=== PATIENT | male | born 1955 | race Caucasian/White ===

== ENCOUNTER → 2017-10-05 | Outpatient (CLI) | payer BC | END | disposition home or self-care (01) | LOC: SPEC 16:40 | DX: L91.8 Other hypertrophic disorders of the skin (principal) | CPT/HCPCS: 88304 ==

== ENCOUNTER → 2018-08-08 | Outpatient (CLI) | payer BC ==
--- NOTE | 2018-08-08 17:00 | RAD ---
PA and lateral chest. HISTORY: Bradycardia PA and lateral views were taken of the chest. Lungs are free of infiltrates. Heart is normal in size. The aorta is mildly tortuous. There is mild bowel distention in the abdomen. There is no effusion. IMPRESSION: 1. No acute infiltrates. Electronically signed by: Robby White MD (08/08/2018 4:56 PM) [facility]
== END | disposition home or self-care (01) ==
LOC: RAD 16:13
PROVIDERS: ATTEND Nurse Practitioner
DX: R00.1 Bradycardia, unspecified (principal)
CPT/HCPCS: 71046

== ENCOUNTER → 2018-09-04 | Outpatient (CLI) | payer BC ==
[~2018-09-04] VITALS: Ht 185.4 cm; Wt 79.4 kg
[~2018-09-04] MED LIST: ALBU2.5V8 INH; BUPR100T7 PO; FLUT1DIS IH; REGADENOSON 0.4 MG/5 ML DISP.SYRIN. IV ONE
--- NOTE | 2018-09-04 11:18 | CARD ---
MR#: [id number] Date of Study: 09/04/2018 Ordering Physician: MAXINE URIBE, Referring Physician: MAXINE URIBE Tech: Melody Joyce GOLDIE APPROVED REPORT EXAM: Two-dimensional and M-mode echocardiogram with Doppler and color Doppler. Other Information Quality : Good INDICATION Chest Pain Bigeminy 2D DIMENSIONS RVDd3.1 (2.9-3.5cm)Left Atrium(2D)3.6 (1.6-4.0cm) IVSd1.1 (0.7-1.1cm)Aortic Root(2D)3.6 (2.0-3.7cm) LVDd5.1 (3.9-5.9cm)LVOT Diameter2.5 (1.8-2.4cm) PWd0.8 (0.7-1.1cm)LVDs3.2 (2.5-4.0cm) FS (%) 30.0 %SV86.1 ml LVEF(%)60.0 (>50%) Aortic Valve AoV Peak Chuck.108.8cm/sAoV VTI21.5cm AO Peak GR.4.7mmHgLVOT Peak Chuck.102.4cm/s LVOT VTI 22.26cmAO Mean GR.2mmHg DEWEY (VMAX)4.07mu1FSC (VTI)4.99cm2 Mitral Valve MV E Azbkdzfm62.5cm/sMV DECEL OYKF237pi MV A Ggyciopm52.3cm/sMV QLH37qw E/A Ratio1.3MVA (PHT)3.43cm2 TDI E/Lateral E'6.9E/Medial E'8.2 Tricuspid Valve TR P. Ktwucslq128kb/sRAP UJOURJQT2aoTa TR Peak Gr.67juTjAYAL59rnMt Pulmonary Vein S1 Lucufilg65.5cm/sD2 Xeelwsjh23.2cm/s LEFT VENTRICLE The left ventricle is normal size. There is normal left ventricular wall thickness. The left ventricu lar systolic function is normal. The Ejection Fraction is 55-60%. There is normal LV segmental wall m otion. RIGHT VENTRICLE The right ventricle is normal size. The right ventricular systolic function is normal. ATRIA The left atrium size is normal. The right atrium size is normal. The interatrial septum is intact wit h no evidence for an atrial septal defect or patent foramen ovale as noted on 2-D or Doppler imaging. AORTIC VALVE The aortic valve is normal in structure and function. Doppler and Color Flow revealed trace aortic re gurgitation. There is no significant aortic valvular stenosis. MITRAL VALVE The mitral valve is normal in structure and function. There is no evidence of mitral valve prolapse. There is no mitral valve stenosis. Doppler and Color-flow revealed trace mitral regurgitation. TRICUSPID VALVE The tricuspid valve is normal in structure and function. Doppler and Color Flow revealed trace tricus pid regurgitation. The PA pressure was estimated at 22 mmHg. There is no tricuspid valve stenosis. PULMONIC VALVE The pulmonic valve is not well visualized. Doppler and Color Flow revealed no pulmonic valvular regur gitation. There is no pulmonic valvular stenosis. GREAT VESSELS The aortic root is normal in size. The ascending aorta is normal in size. The IVC is normal in size a nd collapses >50% with inspiration. PERICARDIAL EFFUSION There is no evidence of significant pericardial effusion. Critical Notification Critical Value: No <Conclusion> The left ventricular systolic function is normal. The Ejection Fraction is 55-60%. There is normal LV segmental wall motion. Trace mitral regurgitation. Trace tricuspid regurgitation. The PA pressure was estimated at 22 mmHg. There is no evidence of significant pericardial effusion. Signed by : Connor Rodriguez, Electronically Approved : 09/04/2018 11:16:44
--- NOTE | 2018-09-04 11:57 | RAD ---
MR#: [id number] Date of Study: 09/04/2018 Ordering Physician: MAXINE URIBE, Referring Physician: WILLIAM STEWART Tech: CRISPIN Cruz ARRT (R) (N) APPROVED REPORT Test Type: Pharmacological Stress Nurse/Tech: Linda Paul R.N. Test Indications: CP Cardiac History: Hypertension, smoker Medications: See Electronic Medical Record Medical History: See Electronic Medical Record Resting ECG: NSR Resting Heart Rate: 60 bpm Resting Blood Pressure: 133/80mmHg Pretest Chest Pain: No chest pain Nurse/Tech Notes S1S2, lungs sound clear but diminished Consent: The procedure was explained to the patient in lay terms. Informed consent was witnessed. Srinivas eout was entered into [employer]. History and Stress Test performed by Linda Paul R.N. Pharm. Details Pharmacologic stress testing was performed using 0.4mg per 5ml of regadenoson given intravenously ove r 7-10 seconds. Stress Symptoms Dyspnea POST EXERCISE Reason for Termination: Infusion complete Target HR: 134 Max HR: 101 bpm Max Blood Pressure: 131/81mmHg Blood Pressure response to exercise: Normal blood pressure response during stress. Chest Pain: No. Arrhythmia: No. ST Change: No. INTERPRETATION Stress EKG Conclusion: No evidence of stress induced EKG changes Imaging Protocol IMAGE PROTOCOL: Rest Tc-99m/stress Tc-99m 1 day Rest: Stress: Viability: Radiopharm.Tc99m DperyrjdgRw43x Sestamibi Scok25yNt 32mCi Img Date 09/04/2018 09/04/2018 Inj-Img Miim88jcp. 60min. Rest Admin Site:IV - Right AntecubitalAdministrator:CRISPIN Cruz ARRT (R)(N) Stress Admin Site: IV - Right AntecubitalAdministrator: RT Husam (R)(N) STRESS DATA End Diast. Vol.154.0mlLVEDV index BSA76.0ml End Syst. Vol.58.0mlLVESV index BSA28.0ml Myocardial Ucbw606.0gEject. Jqvifsdj62.0% Stress Scores Regional WT0.00Summed WT1.00 Regional WM0.00Summed WM3.00 The rest and stress images show normal perfusion, normal contraction and thickening. LV Perf. Quant 17 Seg. SSS1.00 17 Seg. SRS0.00 17 Seg. SDS1.00 Stress Defect Extent (% LAD)0.00Rest Defect Extent (% LAD)0.00Rev. Defect Extent (% LAD)0.00 Stress Defect Extent (% LCX) 0.00Rest Defect Extent (% LCX)0.00Rev. Defect Extent (% LCX)0.00 Stress Defect Extent (% RCA)0.00Rest Defect Extent (% RCA)0.00Rev. Defect Extent (% RCA)0.00 Stress Defect Extent (% PHILLIP)0.00Rest Defect Extent (% PHILLIP)0.00Rev. Defect Extent (% PHILLIP)0.00 Other Information Quality:Fair Risk Assessment: Low Risk Conclusion 1. No evidence of stress induced EKG changes. 2. Normal perfusion at stress and rest. EF 55% 3. Subdiaphragmatic attenuation artifact noted more prominent on stress images. 4. Low risk study. Signed by : Valentin Fernandes, Electronically Approved : 09/04/2018 11:56:19
== END | disposition home or self-care (01) ==
LOC: NM 07:43
PROVIDERS: ATTEND Nurse Practitioner
DX: I49.9 Cardiac arrhythmia, unspecified (principal); R07.89 Other chest pain; I10 Essential (primary) hypertension; Z87.891 Personal history of nicotine dependence
CPT/HCPCS: 78452; 93017; 93306; 96374; A9500; J2785

== ENCOUNTER → 2018-10-15 | Outpatient (CLI) | payer BC ==
[~2018-10-15] MED LIST changes: -REGADENOSON 0.4 MG/5 ML DISP.SYRIN. IV ONE
--- NOTE | 2018-10-15 14:55 | CARD ---
MR#: [id number] Date of Study: 10/15/2018 Ordering Physician: DAWN JENSEN, Referring Physician: DAWN JENSEN, Tech: Melody Joyce GOLDIE APPROVED REPORT EXAM: Two-dimensional and M-mode echocardiogram with Doppler and color Doppler. Other Information Quality : Good INDICATION Dyspnea RISK FACTORS Smoking 2D DIMENSIONS RVDd3.3 (2.9-3.5cm)Left Atrium(2D)3.0 (1.6-4.0cm) IVSd1.2 (0.7-1.1cm)Aortic Root(2D)3.1 (2.0-3.7cm) LVDd5.2 (3.9-5.9cm)LVOT Diameter2.3 (1.8-2.4cm) PWd1.0 (0.7-1.1cm)LVDs2.7 (2.5-4.0cm) FS (%) 30.0 %SV99.6 ml LVEF(%)60.0 (>50%) Aortic Valve AoV Peak Chuck.122.2cm/sAoV VTI23.7cm AO Peak GR.6.0mmHgLVOT Peak Chuck.116.1cm/s LVOT VTI 22.36cmAO Mean GR.3mmHg DEWEY (VMAX)4.38yd0UFM (VTI)4.07cm2 Mitral Valve MV E Ioxcitve57.0cm/sMV DECEL FZIF667gj MV A Mythytrm08.2cm/sMV WDK13mc E/A Ratio1.6MVA (PHT)3.87cm2 TDI E/Lateral E'8.5E/Medial E'10.6 Pulmonary Valve PV Peak Casajelf561.4cm/sPV Peak Grad.11mmHg Tricuspid Valve TR P. Lsbjlejw730pd/sRAP ENXMJATS1slAc TR Peak Gr.97diUqPOSM17gzWl Pulmonary Vein S1 Wqlvuewj12.4cm/sD2 Tavneczz70.5cm/s LEFT VENTRICLE The left ventricle is normal size. There is mild asymmetric septal left ventricular hypertrophy. The left ventricular systolic function is normal and the ejection fraction is within normal range. The Ej ection Fraction is 55-60%. There is normal LV segmental wall motion. Transmitral Doppler flow pattern is Grade I-abnormal relaxation pattern. RIGHT VENTRICLE The right ventricle is normal size. The right ventricular systolic function is normal. ATRIA The left atrium size is normal. The right atrium size is normal. The interatrial septum is intact wit h no evidence for an atrial septal defect or patent foramen ovale as noted on 2-D or Doppler imaging. AORTIC VALVE The aortic valve is calcified but opens well. Doppler and Color Flow revealed no significant aortic r egurgitation. There is no significant aortic valvular stenosis. MITRAL VALVE The mitral valve is calcified but opens well. Cannot rule out mild anterior leaflet chordual rupture. Myxomatous disease. There is no mitral valve stenosis. Doppler and Color Flow revealed no mitral roge ve regurgitation noted. TRICUSPID VALVE The tricuspid valve is normal in structure and function. Doppler and Color Flow revealed mild tricusp id regurgitation. The PA pressure was estimated at 29 mmHg. There is no tricuspid valve stenosis. PULMONIC VALVE The pulmonic valve is not well visualized. Doppler and Color Flow revealed no pulmonic valvular regur gitation. There is no pulmonic valvular stenosis. GREAT VESSELS The aortic root is normal in size. The ascending aorta is mildly dilated at 3.4 cm. The IVC is normal in size and collapses >50% with inspiration. PERICARDIAL EFFUSION There is no evidence of significant pericardial effusion. Critical Notification Critical Value: No <Conclusion> The left ventricular systolic function is normal and the ejection fraction is within normal range. Th e Ejection Fraction is 55-60%. There is normal LV segmental wall motion. Cannot rule out mild anterior leaflet chordual rupture. Myxomatous disease. Signed by : Valentin Fernandes, Electronically Approved : 10/15/2018 14:54:35
== END | disposition home or self-care (01) ==
LOC: ECHO 14:01
PROVIDERS: ATTEND Internal Medicine Cardiovascular Disease
DX: I36.1 Nonrheumatic tricuspid (valve) insufficiency (principal); I51.7 Cardiomegaly; R00.8 Other abnormalities of heart beat; F17.200 Nicotine dependence, unspecified, uncomplicated
CPT/HCPCS: 93306

== ENCOUNTER → 2019-01-09 | Outpatient (CLI) | payer BC ==
--- NOTE | 2019-01-10 13:35 | SLEEP ---
DATE OF STUDY: 01/09/2019 ATTENDING PHYSICIAN: Dr. Jack Vásquez. REFERRING PHYSICIAN: Dr. Tatum Bonner. The patient is 63 years old who weighs 180 pounds with a BMI of 24. The patient's Neville score was 10. The patient underwent split night study performed at [facility]. During the night study, the patient spent 434 minutes in bed and slept for 304 minutes with a sleep efficiency of 70%. Sleep latency was 12 minutes with a REM latency of 392 minutes. Overall, sleep architecture showed increased stage 1 and stage 2 sleep, absent N3 sleep and reduced REM sleep. During the initial diagnostic portion of the study, the patient slept for 207 minutes. During that time, there were 33 obstructive apneas, 6 mixed apneas, no central apneas, and 47 hypopneas. The patient's apnea hypopnea index was 25 per hour, supine index 25 per hour. REM sleep was not seen during the diagnostic portion. PLMS were seen at index of 1 per hour and none caused EEG arousals. EKG monitoring revealed average heart rate of 61 beats per minute. No arrhythmias observed. Nocturnal oximetry study revealed a mean oxygen saturation 94% with the lowest of 87%. 9% of time oxygen saturation remained between 80% and 89%. The patient met the criteria for CPAP initiation. It was started at 5 cm water and titrated up to 7 cm water. At the final pressure, the patient slept for 90 minutes. The patient had supine sleep throughout as well as REM sleep observed. AHI was reduced to 4 per hour, mostly from the mask leak. The patient used a medium size nasal mask. Saturation remained above 90%. IMPRESSION: 1. Moderate sleep apnea-hypopnea syndrome at an AHI of 25 per hour. 2. Nocturnal hypoxia secondary to obstructive sleep apnea, but resolved with CPAP. 3. No clinically significant PLMS. RECOMMENDATIONS: 1. CPAP at 7 cm water completely eliminated the patient's sleep apnea and should be used on a nightly basis. 2. Follow up in 4-6 weeks to assess compliance with CPAP and to document clinical improvement. 3. Avoid FITNESS FLOOR ATTENDANT depressants. 4. Caution regarding driving until symptoms of sleep apnea resolve with the use of CPAP. ADRIANA GOYAL MD DR: KANU/tye JOB#: [id number] / [id number] TATUM Lauren MD
== END | disposition home or self-care (01) ==
LOC: SLPLAB 18:59
PROVIDERS: ATTEND Internal Medicine Pulmonary Disease
DX: G47.33 Obstructive sleep apnea (adult) (pediatric) (principal); G47.34 Idiopathic sleep related nonobstructive alveolar hypoventilation
CPT/HCPCS: 95810

== ENCOUNTER → 2019-03-21 | Outpatient (CLI) | payer BC ==
--- NOTE | 2019-03-21 17:13 | KCIC ---
Examination: CT CHEST WO CONTRAST History: COPD. Smoker for over 40 years Comparison/Correlation: 08/08/2018 two-view chest x-ray exam Findings: Axial images of the chest were obtained without contrast. Sagittal and coronal reformatted images were provided. Centrilobular emphysema is notable. Within the proximal left main bronchus, there is a 0.6 cm diameter intermediate density structure which probably represents retained mucus. No suspicious pulmonary nodule or mass. Minimal scarring in the lung apices noted greater on the right. Significant calcification involving the proximal left anterior descending calcific involvement of the liver is present to a lesser degree. No pleural or pericardial effusion. No enlarged thoracic lymph nodes. Pulmonary hyperinflation is present. Thoracic aortic morphology is grossly unremarkable. Impression: Density within the left main bronchus probably represents retained mucus. Interval follow-up CT in 6 weeks recommended to assess stability or resolution. COPD. No infiltrate. Centrilobular emphysema. PQRS Compliance Statement: One or more of the following individualized dose reduction techniques were utilized for this examination: 1. Automated exposure control 2. Adjustment of the mA and/or kV according to patient size 3. Use of iterative reconstruction technique Electronically signed by: Yeison Mejía MD (03/21/2019 5:10 PM) [id number]
== END | disposition home or self-care (01) ==
LOC: KCIC CT 14:57
PROVIDERS: ATTEND Internal Medicine Pulmonary Disease
DX: J43.2 Centrilobular emphysema (principal); J98.4 Other disorders of lung; F17.210 Nicotine dependence, cigarettes, uncomplicated
CPT/HCPCS: 71250

== ENCOUNTER → 2019-09-09 | Outpatient (CLI) | payer BC ==
--- NOTE | 2019-09-09 09:38 | RAD ---
CT CHEST WO CONTRAST INDICATION: Abnormal chest CT. COMPARISON STUDY: 03/21/2019. TECHNIQUE: Unenhanced axial images were obtained through the lungs and upper abdomen. Coronal and sagittal multiplanar reconstructions were also obtained. PQRS compliance statement: One or more of the following individualized dose reduction techniques were utilized for this examination: 1. Automated exposure control 2. Adjustment of the mA and/or kV according to patient size 3. Use of iterative reconstruction technique FINDINGS: Lungs and Airways: No pulmonary mass or consolidation. There are a couple of small less than 6 mm pulmonary nodules with packaging sales representative nodule as follows: Stable 0.4 cm right upper lobe nodule (series 3 image 16). Right greater than left apical subpleural fibrosis. Paraseptal and centrilobular emphysema. Previously seen density in the left mainstem bronchus is no longer present. Secretions in the central airways. Pleura: The pleural spaces are normal. Heart and Mediastinum: The visualized thyroid gland is normal in size and attenuation. No axillary or supraclavicular lymphadenopathy. No mediastinal, hilar or retrocrural lymphadenopathy. Calcified mediastinal and left hilar lymph nodes consistent with remote granulomatous disease. Normal cardiac size. No pericardial effusion. Coronary artery atherosclerotic disease. The great vessels of the thorax are normal. Abdomen: The visualized abdominal organs demonstrate no abnormality. Bones and Soft Tissues: Degenerative changes of the spine. Old right rib fractures. IMPRESSION: 1. Previously described density in the left mainstem bronchus has resolved, and likely represented endobronchial secretions. 2. No pulmonary mass or consolidation. No thoracic lymphadenopathy. 3. There are a couple of small less than 6 mm pulmonary nodules, which are indeterminate. Consider additional 6 month follow-up unenhanced chest CT to assess stability, given risk factors. Electronically signed by: Meliton Pineda MD (09/09/2019 9:35 AM) [facility]
== END | disposition home or self-care (01) ==
LOC: CT 08:27
PROVIDERS: ATTEND Internal Medicine Pulmonary Disease
DX: J43.2 Centrilobular emphysema (principal); I89.8 Other specified noninfective disorders of lymphatic vessels and lymph nodes; I25.10 Atherosclerotic heart disease of native coronary artery without angina pectoris; M47.814 Spondylosis without myelopathy or radiculopathy, thoracic region
CPT/HCPCS: 71250

== ENCOUNTER 2019-10-25 04:10 | Emergency (ER) | payer BC ==
[~2019-10-25] VITALS: Ht 185.4 cm; Wt 84.1 kg
[2019-10-25 04:14] VITALS: BP 140/88
[2019-10-25] MEDS ORDERED: AMOX500C PO (04:28)
[2019-10-25] MEDS ORDERED: CIPR7.5D RIGHT EAR (04:28)
--- NOTE | 2019-10-25 04:30 | PHYS DOC ---
Adult General Chief Complaint Chief Complaint: EARACHE/EAR PAIN [facility] HPI 64-year-old male presents to emergency Department complaints of sinus congestion 1 week, headaches, right ear pain. Patient denies any fever, nausea, vomiting. States he's tried rizg-qns-jieeqdv medications without relief. He has a plan for primary care physician tomorrow however states pain was worse in the right side tonight subsequent presented the ER for further evaluation. Nothing makes his pain worse, nothing makes his pain better. She denies any headache, chest pain, abdominal pain All other ROS negative unless documented in HPI Review of Systems Review of Systems See Above Allergies Allergies Allergies Coded Allergies Type Severity Reaction Last Updated Verified No Known Drug Allergies 09/04/18 No Physical Exam Physical Exam See Above Constitutional: Well developed, well nourished, no acute distress, non-toxic appearance. [] HENT: Normocephalic, atraumatic, right ear with evidence of otitis ,, left ear with mild irritation of the tympanic membrane no acute infection tenderness appreciated over the maxillary sinus, oropharynx moist, no oral exudates, nose normal. [] Eyes: PERRLA, EOMI, conjunctiva normal, no discharge. [] Neck: Normal range of motion, no tenderness, supple, no stridor. [] Cardiovascular:Heart rate regular rhythm, no murmur [] Lungs & Thorax: Bilateral breath sounds clear to auscultation [] Skin: Warm, dry, no erythema, no rash. [] Neurologic: Alert and oriented X 3, no focal deficits noted. [] Psychologic: Affect normal, judgement normal, mood normal. [] EKG EKG [] Radiology/Procedures Radiology/Procedures [] Course & Med Decision Making Course & Med Decision Making Pertinent Labs and Imaging studies reviewed. (See chart for details) []64-year-old male presents to emergency Department complaints of sinus congestion 1 week, headaches, right ear pain. Patient denies any fever, nausea, vomiting. States he's tried xvwm-gbr-sgnazco medications without relief. He has a plan for primary care physician tomorrow however states pain was worse in the right side tonight subsequent presented the ER for further evaluation. Nothing makes his pain worse, nothing makes his pain better. She denies any headache, chest pain, abdominal pain Dragon Disclaimer Dragon Disclaimer This electronic medical record was generated, in whole or in part, using a voice recognition dictation system. Departure Departure Impression: Primary Impression: Otitis externa Additional Impression: Sinus infection Disposition: 01 HOME, SELF-CARE Condition: STABLE Referrals: SAVANNA CANDELARIO MD (PCP) Patient Instructions: Otitis Externa, Qfnm-xa-Uwel, Sinusitis, Child Additional Instructions: Take antibiotic as directed 2 abx given, drops for right ear and pills for sinus infection Encourage fluids as able Tylenol/Motrin as needed for pain Follow up with PCP in 3 - 5 days Scripts Amoxicillin (AMOXICILLIN) 500 Mg Capsule 1 CAP PO Q8HRS for infection for 10 Days, #30 CAP Prov: KENNEDY VIERA MD 10/25/19 Ciprofloxacin Hcl/Dexameth (CIPRODEX OTIC SUSPENSION) 7.5 Ml Drops.susp 4 DROP RIGHT EAR BID, #7.5 ML Prov: KENNEDY VIERA MD 10/25/19 Problem Qualifiers Primary Impression: Otitis externa Otitis externa type: hemorrhagic Chronicity: acute Laterality: right Qualified Codes: H60.321 - Hemorrhagic otitis externa, right ear Additional Impression: Sinus infection Sinusitis location: maxillary Chronicity: subacute Qualified Codes: J01.00 - Acute maxillary sinusitis, unspecified KENNEDY VIERA MD Oct 25, 2019 04:30
== END 2019-10-25 04:33 | disposition home or self-care (01) ==
LOC: ER 04:10
DX: H60.321 Hemorrhagic otitis externa, right ear (principal); J01.00 Acute maxillary sinusitis, unspecified; R51 Headache
CPT/HCPCS: 99283

== ENCOUNTER → 2021-01-15 | Outpatient (CLI) | payer BC ==
[~2021-01-15] MED LIST changes: +AMOX500C PO; +CIPR7.5D RIGHT EAR
--- NOTE | 2021-01-15 17:49 | CARD ---
MR#: [id number] Date of Study: 01/15/2021 Ordering Physician: DAWN JENSEN, Referring Physician: DAWN JENSEN, Tech: Fani Campos, [facility] APPROVED REPORT EXAM: Two-dimensional and M-mode echocardiogram with Doppler and color Doppler. Other Information Quality : AverageHR: 55bpm INDICATION COPD Dyspnea RISK FACTORS Smoking 2D DIMENSIONS RVDd3.5 (2.9-3.5cm)Left Atrium(2D)3.3 (1.6-4.0cm) IVSd1.0 (0.7-1.1cm)Aortic Root(2D)4.1 (2.0-3.7cm) LVDd5.5 (3.9-5.9cm)LVOT Diameter2.4 (1.8-2.4cm) PWd1.1 (0.7-1.1cm)LVDs3.8 (2.5-4.0cm) FS (%) 30.7 %SV86.5 ml LVEF(%)57.7 (>50%) Aortic Valve AoV Peak Chuck.131.8cm/sAoV VTI27.0cm AO Peak GR.6.9mmHgLVOT Peak Chuck.95.8cm/s LVOT VTI 19.56cmAO Mean GR.4mmHg DEWEY (VMAX)2.23az0RQG (VTI)3.23cm2 Mitral Valve MV E Ylvpnnil07.1cm/sMV DECEL GKHK140qi MV A Ybnbgbwm81.8cm/sMV OTA43sx E/A Ratio1.6MVA (PHT)2.29cm2 TDI E/Lateral E'4.8E/Medial E'6.3 Pulmonary Valve PV Peak Yjieoaof81.3cm/sPV Peak Grad.3mmHg Tricuspid Valve TR P. Gfbiyisg571ia/sRAP ZMYWVBKJ6ssSo TR Peak Gr.22rqJyYSSH73gxSd Pulmonary Vein S1 Lqfpnmag39.2cm/sD2 Argtfogr73.0cm/s PVa satiufgo382llwi LEFT VENTRICLE The left ventricle is normal size. There is mild concentric left ventricular hypertrophy. The left ve ntricular systolic function is normal. The Ejection Fraction is 55%. There is normal LV segmental wal l motion. Transmitral Doppler flow pattern is Grade II-pseudonormal filling dynamics. RIGHT VENTRICLE The right ventricle is mildly dilated. There is normal right ventricular wall thickness. The right ve ntricular systolic function is normal. ATRIA The left atrium size is normal. The right atrium is mildly dilated. The interatrial septum is intact with no evidence for an atrial septal defect or patent foramen ovale as noted on 2-D or Doppler imagi ng. AORTIC VALVE The aortic valve is normal in structure and function. Doppler and Color Flow revealed trace aortic re gurgitation. There is no significant aortic valvular stenosis. Calculated aortic valve area is 3.43 c m2 with maximum pressure gradient of 9 mmHg and mean pressure gradient of 5 mmHg. MITRAL VALVE The mitral valve is normal in structure and function. There is no evidence of mitral valve prolapse. There is no mitral valve stenosis. Doppler and Color-flow revealed trace mitral regurgitation. TRICUSPID VALVE The tricuspid valve is normal in structure and function. Doppler and Color Flow revealed trace tricus pid regurgitation with an estimated PAP of 31 mmHg. There is no tricuspid valve stenosis. PULMONIC VALVE The pulmonic valve is not well visualized. Doppler and Color Flow revealed no pulmonic valvular regur gitation. GREAT VESSELS The aortic root is normal in size. The IVC is normal in size and collapses >50% with inspiration. PERICARDIAL EFFUSION There is no evidence of significant pericardial effusion. Critical Notification Critical Value: No <Conclusion> The left ventricular systolic function is normal. The Ejection Fraction is 55%. There is normal LV segmental wall motion. Transmitral Doppler flow pattern is Grade II-pseudonormal filling dynamics. Trace mitral regurgitation. Trace tricuspid regurgitation with an estimated PAP of 31 mmHg. There is no evidence of significant pericardial effusion. Signed by : Connor Rodriguez, Electronically Approved : 01/15/2021 17:48:50
== END ==
LOC: ECHO 14:45
PROVIDERS: ATTEND Internal Medicine Cardiovascular Disease
DX: I51.7 Cardiomegaly (principal); R06.09 Other forms of dyspnea
CPT/HCPCS: 93306

== ENCOUNTER → 2021-03-05 | Outpatient (CLI) | payer BC ==
--- NOTE | 2021-03-05 11:45 | RAD ---
PQRS Compliance Statement: One or more of the following individualized dose reduction techniques were utilized for this examinat ion: 1. Automated exposure control 2. Adjustment of the mA and/or kV according to patient size 3. Use of iterative reconstruction technique CT THORAX WO 03/05/2021 7:46 AM Indication: Lung cancer screening, smoker. COMPARISON: CT chest 09/09/2019 TECHNIQUE: Multiple axial CT images of the chest were obtained without intravenous contrast wasn't lo w-dose technique. Coronal and sagittal reformats are provided. FINDINGS: Moderate centrilobular pulmonary emphysema. Right apical pleural-parenchymal scarring. Previously see n 3 mm solid noncalcified pulmonary nodules not definitively seen on the current examination. No new or enlarging solid noncalcified pulmonary nodules. No pleural effusions, pulmonary vascular congestio n or pneumothorax. Bullous airspace disease identified within the subpleural right lower lobe. Right chest wall battery pack is identified with leads extending cranially. Thyroid gland is normal in appe arance. No pathologically enlarged thoracic lymph nodes. Heart size is within normal limits. No peric ardial effusion. Descending thoracic aorta is mildly ectatic measuring 3.2 cm. Visualized portions of the upper abdomen are normal. No suspicious osseous normality is identified. Remote healed right-wicho ed rib fractures are identified. IMPRESSION: 1. No suspicious solid noncalcified pulmonary nodule. Lung RADS category 1, negative. Recommend low-d ose chest CT in one year. Previously seen 3 mm solid noncalcified pulmonary nodule at the right lung apex is not visualized on the current examination. 2. Moderate centrilobular pulmonary emphysema compatible with underlying COPD. 3. Ectasia of the descending thoracic aorta, stable. Electronically signed by: Betsy Ko MD (03/05/2021 11:42 AM) [id number]
== END ==
LOC: CT 07:43
PROVIDERS: ATTEND Internal Medicine Pulmonary Disease
DX: Z12.2 Encounter for screening for malignant neoplasm of respiratory organs (principal); J43.2 Centrilobular emphysema; J98.4 Other disorders of lung; F17.200 Nicotine dependence, unspecified, uncomplicated; I77.810 Thoracic aortic ectasia
CPT/HCPCS: 71250

== ENCOUNTER → 2021-08-13 | Outpatient (CLI) | payer MEDICARE ==
--- NOTE | 2021-08-14 07:05 | CARD ---
MR#: [id number] Date of Study: 08/13/2021 Ordering Physician: DAWN JENSEN, Referring Physician: DAWN JENSEN, Tech: Magaly Leon [facility] APPROVED REPORT EXAM: Two-dimensional and M-mode echocardiogram with Doppler and color Doppler. Other Information Quality : AverageHR: 52bpm Rhythm : NSR INDICATION COPD 2D DIMENSIONS RVDd3.8 (2.9-3.5cm)Left Atrium(2D)3.7 (1.6-4.0cm) IVSd1.1 (0.7-1.1cm)Aortic Root(2D)4.1 (2.0-3.7cm) LVDd5.2 (3.9-5.9cm)LVOT Diameter2.8 (1.8-2.4cm) PWd1.0 (0.7-1.1cm)LVDs3.6 (2.5-4.0cm) FS (%) 30.9 %SV76.0 ml LVEF(%)58.2 (>50%) Aortic Valve AoV Peak Chuck.124.4cm/sAoV VTI25.2cm AO Peak GR.6.2mmHgLVOT Peak Chuck.109.1cm/s AO Mean GR.3mmHgAVA (VMAX)5.26cm2 Mitral Valve MV E Zsvhneqr63.5cm/sMV DECEL [id number] MV A Drflkeqk81.3cm/sE/A Ratio1.0 Pulmonary Valve PV Peak Tizdvzdm224.1cm/s Tricuspid Valve TR P. Xqbqplre100om/sTR Peak Gr.18mmHg LEFT VENTRICLE The left ventricle is normal size. There is normal left ventricular wall thickness. The left ventricu lar systolic function is normal and the ejection fraction is within normal range. Estimated ejection fraction 60%. There is normal LV segmental wall motion. The left ventricular diastolic function and f illing is normal for age. RIGHT VENTRICLE The right ventricle is borderline dilated. There is normal right ventricular wall thickness. The righ t ventricular systolic function is normal. ATRIA The left atrium size is normal. The right atrium is borderline dilated. The interatrial septum is int act with no evidence for an atrial septal defect or patent foramen ovale as noted on 2-D or Doppler i maging. AORTIC VALVE The aortic valve is normal in structure and function. Doppler and Color Flow revealed trace aortic re gurgitation. There is no significant aortic valvular stenosis. MITRAL VALVE The mitral valve is normal in structure and function. There is no evidence of mitral valve prolapse. There is no mitral valve stenosis. Doppler and Color-flow revealed trace mitral regurgitation. TRICUSPID VALVE The tricuspid valve is normal in structure and function. Doppler and Color Flow revealed trace tricus pid regurgitation. Estimated PAP 28 mmHg. There is no tricuspid valve stenosis. PULMONIC VALVE The pulmonary valve is normal in structure and function. Doppler and Color Flow revealed mild pulmoni c valvular regurgitation. There is no pulmonic valvular stenosis. GREAT VESSELS The aortic root is mildly to moderately enlarged. The ascending aorta is borderline dilated. The IVC is dilated and collapses >50% with inspiration. PERICARDIAL EFFUSION There is no evidence of significant pericardial effusion. Critical Notification Critical Value: No <Conclusion> The left ventricular systolic function is normal and the ejection fraction is within normal range. E stimated ejection fraction 60%. There is normal LV segmental wall motion. The left ventricular diastolic function and filling is normal for age. Doppler and Color Flow revealed mild pulmonic valvular regurgitation. The aortic root is mildly enlarged. *There is a trivial color flow noted on short axis images at the level of the aortic valve and main p ulmonary artery. Cannot rule out a small residual PDA versus off-axis imaging of the mild pulmonary i nsufficiency. Consider dedicated LUKE or CT angiogram with arterial phase imaging. Signed by : Valentin Fernandes, Electronically Approved : 08/14/2021 07:04:33
== END ==
LOC: ECHO 14:28
PROVIDERS: ATTEND Internal Medicine Cardiovascular Disease
DX: I37.1 Nonrheumatic pulmonary valve insufficiency (principal); R06.09 Other forms of dyspnea
CPT/HCPCS: 93306